=== PATIENT | male | born 2000 | race Caucasian/White ===

== ENCOUNTER → 2022-05-04 | Outpatient (CLI) | payer OTHER ==
[~2022-05-04] MED LIST: ISOVUE-300 61% 50ML VIAL As Ordered ONE; LIDOCAINE 1% MDV 20ML VIAL As Ordered ONE; PROHANCE 279.3MG/ML 5ML VIAL As Ordered ONE
== END ==
LOC: M RADPRO 07:01
PROVIDERS: ATTEND Physician Assistant
DX: S73.101A Unspecified sprain of right hip, initial encounter (principal); X58.XXXA Exposure to other specified factors, initial encounter; Y92.9 Unspecified place or not applicable
CPT/HCPCS: 27093; 73723; 77002; A9576

== ENCOUNTER → 2023-04-12 | Outpatient (CLI) | payer OTHER ==
[~2023-04-12] MED LIST changes: +ISOVUE-300 61% 100ML VIAL As Ordered ONE; -ISOVUE-300 61% 50ML VIAL As Ordered ONE
== END ==
LOC: M RAD 12:32
PROVIDERS: ATTEND Physician Assistant
DX: M25.552 Pain in left hip (principal)
CPT/HCPCS: 27093; 73723; 77002; A9576; Q9967

== ENCOUNTER 2023-06-03 12:42 | Emergency (ER) | payer OTHER ==
[~2023-06-03] VITALS: Ht 170.2 cm; Wt 95.2 kg
[2023-06-03] MEDS ORDERED: HYDR50TA70 PO (16:36)
[2023-06-03 16:43] VITALS: BP 140/80; TEMP 97.2; O2SAT 99
== END 2023-06-03 16:44 | disposition home or self-care (01) ==
LOC: M ED 12:42
DX: K59.00 Constipation, unspecified (principal); F41.9 Anxiety disorder, unspecified; F17.290 Nicotine dependence, other tobacco product, uncomplicated